=== PATIENT | male | born 1990 | race Caucasian/White ===

== ENCOUNTER 2016-08-31 18:48 | Emergency (ER) | payer OTHER ==
[~2016-08-31] VITALS: Ht 172.7 cm; Wt 75.3 kg
[~2016-08-31 18:48] MED LIST: ADDERALL XR 1010 MG PO; ATIVAN1 MG PO; BENTYL10 MG PO; BENTYL20 MG PO; CLARITIN10 MG PO; FLEXERIL10 MG PO; FLONASE16 G1 BOTH NARES; IBUPROFEN200 M1 PO; KEFLEX500 MG PO; MOTRIN600 MG PO; MOTRIN800 MG PO; NAPROSYN500 MG PO; PEN-VEE K,VEET500 MG PO; PRILOSEC OTC20 MG PO; TRAMADOL HCL50 MG PO; TYLENOL REGULA325 MG PO; ULTRAM50 MG PO; VANCOMYCIN HCL125 MG PO; VENTOLIN HFA18 GM IH; VITAMIN B-6100 MG PO; ZOFRAN4 MG PO; ZYVOX600 MG PO
[2016-08-31] MEDS ORDERED: NAPROXEN500 MG PO (21:30)
[2016-08-31 21:42] VITALS: BP 117/73
== END 2016-08-31 21:42 | disposition home or self-care (01) ==
LOC: EME 18:48
DX: S43.402A Unspecified sprain of left shoulder joint, initial encounter (principal)
CPT/HCPCS: 73030; 99281; 99283

== ENCOUNTER 2016-11-28 10:42 | Emergency (ER) | payer OTHER ==
[~2016-11-28] VITALS: Ht 172.7 cm; Wt 72.9 kg
[~2016-11-28 10:42] MED LIST changes: +NAPROXEN500 MG PO
[2016-11-28 11:28] LABS: HEMATOCRIT 44.2 % (38.0-50.0); MCH 30.4 PG (29.0-34.0); MCHC 35.5 G/DL (30.0-36.0); MCV 85.5 FL (86-99); PLATELET COUNT 180 K/uL (156-360); RBC DIS.WIDTH-SD 34.5 % (39-53); RED BLOOD COUNT 5.17 M/uL (4.00-5.50); WHITE BLOOD COUNT 5.5 K/uL (4.1-10.2)
[2016-11-28 11:55] LABS: CHLORIDE 106 mEq/L (99-109); POTASSIUM 4.2 mEq/L (3.7-5.4); SODIUM 142 mEq/L (136-147)
[2016-11-28 11:57] LABS: GLUCOSE 92 mg/dL (70-99)
[2016-11-28 11:58] LABS: ANION GAP 8 MEQ/L (2-14)
[2016-11-28 11:59] LABS: TOTAL BILIRUBIN 0.8 mg/dL (0.0-1.0)
[2016-11-28 12:00] LABS: ALKALINE PHOSPHATASE 76 IU/L (3-129)
[2016-11-28 12:01] LABS: GFR ESTIMATE (CALCULATED) > 59 mL/min/
[2016-11-28 12:02] LABS: UREA NITROGEN (BUN) 8 mg/dL (9-23)
[2016-11-28 12:33] LABS: ADD MIUA? NO; BILIRUBIN NEGATIVE; BLOOD NEGATIVE; COLOR STRAW ((YELLOW)); GLUCOSE (STRIP) NEGATIVE; KETONES NEGATIVE; LEUKOCYTES NEGATIVE; NITRITE NEGATIVE; PROTEIN (STRIP) NEGATIVE; SPECIFIC GRAVITY 1.005 (1.000-1.030); UCUL ADDED? NO; UROBILINOGEN 0.2 MG/DL (0.2-1.0)
[2016-11-28] MEDS ORDERED: ZOFRAN ODT4 MG PO (14:17)
[2016-11-28 14:23] VITALS: BP 123/68
== END 2016-11-28 14:20 | disposition home or self-care (01) ==
LOC: EME 10:42
DX: A08.4 Viral intestinal infection, unspecified (principal); J45.909 Unspecified asthma, uncomplicated; F17.200 Nicotine dependence, unspecified, uncomplicated
CPT/HCPCS: 80053; 81003; 85027; 99281; 99284

== ENCOUNTER 2017-01-11 15:02 | Emergency (ER) | payer OTHER ==
[~2017-01-11] VITALS: Ht 172.7 cm; Wt 72.2 kg
[~2017-01-11 15:02] MED LIST changes: +ZOFRAN ODT4 MG PO
[2017-01-11] MEDS ORDERED: CYCLOBENZAPRINE10 MG PO (15:19)
[2017-01-11 17:33] VITALS: BP 126/78
== END 2017-01-11 17:37 | disposition home or self-care (01) ==
LOC: EME 15:02
DX: F41.0 Panic disorder [episodic paroxysmal anxiety] (principal); F41.1 Generalized anxiety disorder; J45.909 Unspecified asthma, uncomplicated; F17.200 Nicotine dependence, unspecified, uncomplicated
CPT/HCPCS: 90839; 99281; 99284

== ENCOUNTER 2017-03-22 16:00 | Emergency (ER) | payer OTHER ==
[~2017-03-22] VITALS: Ht 172.7 cm; Wt 74.3 kg
[~2017-03-22 16:00] MED LIST changes: +CYCLOBENZAPRINE10 MG PO
[2017-03-22 16:33] LABS: HEMATOCRIT 46.9 % (38.0-50.0); MCH 30.5 PG (29.0-34.0); MCHC 35.8 G/DL (30.0-36.0); MCV 85.1 FL (86-99); MEAN PLAT.VOLUME 8.9 uM^3 (9.0-12.4); PLATELET COUNT 209 K/uL (156-360); RBC DIS.WIDTH-CV 11.3 % (11.8-14.6); RBC DIS.WIDTH-SD 34.7 % (39-53); RED BLOOD COUNT 5.51 M/uL (4.00-5.50); WHITE BLOOD COUNT 6.7 K/uL (4.1-10.2)
[2017-03-22 16:40] LABS: CHLORIDE 107 mEq/L (99-109); POTASSIUM 4.4 mEq/L (3.7-5.4); SODIUM 142 mEq/L (136-147)
[2017-03-22 16:43] LABS: GLUCOSE 118 mg/dL (70-99)
[2017-03-22 16:44] LABS: ANION GAP 10 MEQ/L (2-14); TOTAL BILIRUBIN 0.7 mg/dL (0.0-1.0)
[2017-03-22 16:46] LABS: ALKALINE PHOSPHATASE 75 IU/L (3-129); GFR ESTIMATE (CALCULATED) > 59 mL/min/
[2017-03-22 16:47] LABS: UREA NITROGEN (BUN) 10 mg/dL (9-23)
[2017-03-22] MEDS ORDERED: BUPROPION HCL100 M1 PO (17:59)
[2017-03-22] MEDS ORDERED: ADDERALL10 MG PO (17:59)
[2017-03-22 18:04] LABS: ADD MIUA? NO; BILIRUBIN NEGATIVE; BLOOD NEGATIVE; COLOR YELLOW ((YELLOW)); GLUCOSE (STRIP) NEGATIVE; KETONES NEGATIVE; LEUKOCYTES NEGATIVE; NITRITE NEGATIVE; PROTEIN (STRIP) NEGATIVE; UCUL ADDED? NO; UROBILINOGEN 0.2 MG/DL (0.2-1.0)
[2017-03-22] MEDS ORDERED: CEFDINIR300 MG PO (18:09)
[2017-03-22] MEDS ORDERED: ZOFRAN4 MG PO (18:09)
[2017-03-22 19:09] VITALS: BP 137/80
== END 2017-03-22 19:35 | disposition home or self-care (01) ==
LOC: EME 16:00
DX: H66.91 Otitis media, unspecified, right ear (principal); R11.10 Vomiting, unspecified; J45.909 Unspecified asthma, uncomplicated; F17.200 Nicotine dependence, unspecified, uncomplicated
CPT/HCPCS: 80053; 81003; 85027; 99281; 99284

== ENCOUNTER 2017-04-25 22:10 | Emergency (ER) | payer OTHER ==
[~2017-04-25] VITALS: Ht 172.7 cm; Wt 75.7 kg
[~2017-04-25 22:10] MED LIST changes: +ADDERALL10 MG PO; +BUPROPION HCL100 M1 PO; +CEFDINIR300 MG PO
[2017-04-25 22:27] VITALS: BP 147/100
== END 2017-04-26 07:23 | disposition left against medical advice (07) ==
LOC: EME 22:10
DX: K08.89 Other specified disorders of teeth and supporting structures (principal); Z53.21 Procedure and treatment not carried out due to patient leaving prior to being seen by health care provider
CPT/HCPCS: 99281